=== PATIENT | female | born 1985 | race Two or more races ===

== ENCOUNTER 2016-09-29 00:09 | Emergency (ER) | payer MEDICAID ==
[2016-09-29] MEDS ORDERED: Acetaminophen TAB* 325 MG PO ONE (01:37)
--- NOTE | 2016-09-29 01:42 | ED ---
Upper Extremity Pain - HPI Summary HPI Summary: 30 F w/ PMH of asthma who is 39 weeks presents with right thumb pain. She jammed her finger into a wall. She states the area has swollen and her finger is throbbing. She denies any numbness or tingling. She denies any wrist pain or other symptoms. She is right handed. She has not taken anything for the pain. - History of Current Complaint Chief Complaint: EDExtremityUpper Stated Complaint: RIGHT THUMB PAIN Time Seen by Provider: 09/29/16 01:31 - Allergies/Home Medications Allergies/Adverse Reactions: Allergies Allergy/AdvReac Type Severity Reaction Status Date / Time Fish-derived Products Allergy Severe Difficulty Verified 02/19/16 09:01 Breathing PMH/Surg Hx/FS Hx/Imm Hx Endocrine/Hematology History: Denies: Hx Anticoagulant Therapy, Hx Diabetes, Hx Thyroid Disease Cardiovascular History: Denies: Hx Hypertension, Hx Pacemaker/ICD Respiratory History: Reports: Hx Asthma Denies: Hx Chronic Obstructive Pulmonary Disease (COPD) History: Denies: Hx Renal Disease Neurological History: Denies: Hx Dementia, Hx Seizures Psychiatric History: Denies: Hx Substance Abuse - Immunization History Date of Tetanus Vaccine: UNKNOWN Date of Influenza Vaccine: NONE Infectious Disease History: No Infectious Disease History: Denies: Hx Hepatitis, Hx Human Immunodeficiency Virus (HIV), Traveled Outside the [place] in Last 30 Days - Family History Known Family History: Negative: Cardiac Disease - Social History Alcohol Use: None Substance Use Type: Reports: None Smoking Status (MU): Never Smoked Tobacco Review of Systems Negative: Fever Negative: Chest Pain Negative: Shortness Of Breath Positive: Myalgia - right thumb pain All Other Systems Reviewed And Are Negative: Yes Physical Exam Triage Information Reviewed: Yes Vital Signs On Initial Exam: Initial Vitals Temp Pulse Resp BP Pulse Ox 98.4 F 102 18 104/65 100 09/29/16 00:13 09/29/16 00:13 09/29/16 00:13 09/29/16 00:09/29/16 00:13 Vital Signs Reviewed: Yes Appearance: Positive: Well-Appearing Skin: Positive: Warm, Dry Head/Face: Positive: Normal Head/Face Inspection ENT: Positive: Normal ENT inspection, Pharynx normal, TMs normal Respiratory/Lung Sounds: Positive: Clear to Auscultation, Breath Sounds Present Cardiovascular: Positive: Normal, RRR Musculoskeletal: Positive: Strength/ROM Intact - of index, ring, middle and pinky finger, Limited @ - thumb due to pain, Other - no snuff box tenderness or wrist tenderness, only tender metacarpel pharyngeal joint, capillary refill < 2secs, good pulses, sensation grossly intact Diagnostics - Vital Signs Vital Signs Temp Pulse Resp BP Pulse Ox 09/29/16 00:13 98.4 F 102 18 104/65 100 - Laboratory Lab Statement: Any lab studies that have been ordered have been reviewed, and results considered in the medical decision making process. - Radiology thumb Xray Interpretation: No Acute Changes Radiology Interpretation Completed By: ED Physician Course/Dx - Course Course Of Treatment: 30 F presents with right thumb pain s/p jamming finger in wall, she is 39 weeks , no exam neurovascular intact, limited ROM of thumb due to pain, xray showed no fracture read by me, will treat conservatively , patient agrees with plan - Diagnoses Differential Diagnosis/HQI/PQRI: Positive: Contusion, Fracture (Closed), Strain , Sprain Provider Diagnoses: Pain of right thumb Discharge - Discharge Plan Condition: Good Disposition: HOME Patient Education Materials: Finger Sprain (ED) Referrals: Non Staff,Doctor [Primary Care Provider] - Additional Instructions: Take Tylenol for pain every 6 hours as needed Ice, elevate Establish care with primary care physician to follow up Return to ED if develop any new or worsening symptoms
[2016-09-29 02:25] VITALS: BP 125/80
--- NOTE | 2016-09-29 07:24 | RAD ---
INDICATION: Pain at proximal phalanx after "jammed thumb" COMPARISON: None TECHNIQUE: 3 views of the right thumb were obtained. FINDINGS: The bones are normal alignment. Joint spaces appear maintained. No fracture is seen. IMPRESSION: No acute fracture or dislocation. If the patient's symptoms persist, follow-up imaging is recommended.
== END 2016-09-29 02:22 | disposition home or self-care (01) ==
LOC: ED 00:09
DX: M79.644 Pain in right finger(s) (principal); Z3A.39 39 weeks gestation of pregnancy
CPT/HCPCS: 99283; A9270-GY

== ENCOUNTER 2016-10-03 02:08 | Inpatient (IN) | payer MEDICAID ==
[2016-10-03 03:16] LABS: ROM Internal QC QC Line Present
[2016-10-03 04:37] LABS: Comments Flag Yes; Hematocrit 29 % (35-47); Hemoglobin 8.8 g/dl (12.0-16.0); Mean Corpuscular HGB Conc 31 g/dl (31-36); Mean Corpuscular Hemoglobin 21 pg (27-31); Mean Corpuscular Volume 68 fL (80-97); Mean Platelet Volume 8 um3 (7.4-10.4); Red Blood Count 4.29 10^6/ul (4.0-5.4); Red Cell Distribution Width 19 % (10.5-15); White Blood Count 9.5 10^3/ul (3.5-10.8)
[2016-10-03 04:38] LABS: Add Diff/Slide Review? Slide Review Added
[2016-10-03 05:40] LABS: Microcytosis 2+
[2016-10-03 05:41] LABS: Add Path Review? YES
[2016-10-03] MEDS: GuaiFENesin DM* 5 ML UDC PO PRN ×3 (07:35→20:02)
[2016-10-03] MEDS ORDERED: Acetaminophen TAB* 325 MG ONE (07:36)
[2016-10-03] MEDS ORDERED: Oxytocin in LR* 20 UNITS/1,000 ML BAG IVPB SCH ×2 (10:00→14:00)
[2016-10-03] MEDS ORDERED: fentaNYL* 50 MCG/ML 2 ML VIAL (100 MCG VIAL) ONE (10:56)
[2016-10-03] MEDS ORDERED: fentaNYL* 50 MCG/ML 2 ML VIAL (100 MCG VIAL) IV SLOW PU ONE ×2 (11:01→12:05)
[2016-10-03] MEDS ORDERED: Glycerin ADULT SUPP PR PRN (13:12)
[2016-10-03] MEDS ORDERED: Witch Hazel PAD* JAR TOPICAL PRN (13:12)
[2016-10-03] MEDS ORDERED: Dibucaine 1% 28.35 GM TUBE PR PRN (13:12)
[2016-10-03] MEDS: Docusate CAP* 100 MG PO SCH ×2 (15:51→23:35)
[2016-10-03] MEDS: Acetaminophen TAB* 325 MG PO PRN (15:51)
[2016-10-03] MEDS: Simethicone TAB* 80 MG TAB.CHEW PO SCH ×2 (17:49→21:17)
[2016-10-03] MEDS ORDERED: Lidocaine 1% MPF* 2 ML VIAL ONE (18:54)
[2016-10-03] MEDS: Ibuprofen TAB* 600 MG PO PRN (20:02)
[2016-10-03] MEDS: oxyCODONE/Acetamin 5/325 MG* TAB PO PRN (23:35)
[2016-10-04] MEDS: Ibuprofen TAB* 600 MG PO PRN ×4 (02:18→20:40)
[2016-10-04] MEDS: GuaiFENesin DM* 5 ML UDC PO PRN ×4 (02:24→20:32)
[2016-10-04] MEDS: oxyCODONE/Acetamin 5/325 MG* TAB PO PRN ×4 (03:36→20:41)
[2016-10-04] MEDS: Docusate CAP* 100 MG PO SCH ×3 (07:37→20:32)
[2016-10-04 08:39] LABS: Hematocrit 27 % (35-47); Hemoglobin 8.1 g/dl (12.0-16.0); Mean Corpuscular HGB Conc 30 g/dl (31-36); Mean Corpuscular Hemoglobin 20 pg (27-31); Mean Platelet Volume 8 um3 (7.4-10.4); Red Blood Count 3.99 10^6/ul (4.0-5.4); Red Cell Distribution Width 20 % (10.5-15); White Blood Count 11.8 10^3/ul (3.5-10.8)
[2016-10-04 08:54] LABS: Comments Flag Yes; Mean Corpuscular Volume 68 fL (80-97)
[2016-10-04] MEDS: Ferrous Gluconate TAB* 324 MG TAB PO SCH ×2 (17:12→20:32)
[2016-10-04 20:24] VITALS: BP 103/58
[2016-10-05] MEDS: Ibuprofen TAB* 600 MG PO PRN (04:58)
[2016-10-05] MEDS: oxyCODONE/Acetamin 5/325 MG* TAB PO PRN (04:58)
[2016-10-05] MEDS: GuaiFENesin DM* 5 ML UDC PO PRN (05:02)
[2016-10-05] MEDS: Docusate CAP* 100 MG PO SCH ×2 (08:36→13:44)
[2016-10-05] MEDS: Ferrous Gluconate TAB* 324 MG TAB PO SCH (08:51)
[2016-10-05] MEDS: Acetaminophen TAB* 325 MG PO PRN (08:52)
== END 2016-10-05 16:03 | disposition home or self-care (01) | DRG 560 ==
LOC: MCHOBOUT 02:08 → MCHOB 03:23
PROVIDERS: ADMIT Midwife; ATTEND Midwife
PROC: 10E0XZZ Delivery of Products of Conception, External Approach (ICD-10-PCS; principal; 2016-10-03)
PROC: 4A1HXCZ Monitoring of Products of Conception, Cardiac Rate, External Approach (ICD-10-PCS; 2016-10-03)
DX: O99.52 Diseases of the respiratory system complicating childbirth (principal); O98.82 Other maternal infectious and parasitic diseases complicating childbirth; Z3A.40 40 weeks gestation of pregnancy; J45.909 Unspecified asthma, uncomplicated; Z37.0 Single live birth; O90.81 Anemia of the puerperium; F53 Mental and behavioral disorders associated with the puerperium, not elsewhere classified; J06.9 Acute upper respiratory infection, unspecified
CPT/HCPCS: 36415; 84112; 85025; 85060; 86850; 86900; 86901; A9270-GY; J3010

== ENCOUNTER → 2017-06-24 12:22 | Emergency (ER) | payer SELFPAY ==
[2017-06-24 12:27] VITALS: BP 97/53
[2017-06-24 14:39] LABS: Urine Nitrite Negative (Negative)
[2017-06-24 14:40] LABS: Urine Bacteria Absent (Absent); Urine Bilirubin Negative (Negative); Urine Glucose Negative (Negative)
[2017-06-24 14:41] LABS: Manual Entry Verification CR; UR Preg Internal Control QC Line Present
--- NOTE | 2017-06-24 15:07 | RAD ---
Indication: Right ankle pain. 3 views of the right ankle demonstrates ankle mortise to be intact. There is no fracture. No other bone or joint abnormality is identified. INDICATION: No fracture of the right ankle is noted.
--- NOTE | 2017-06-24 15:36 | ED ---
Lower Extremity - HPI Summary HPI Summary: Patient is an otherwise healthy F presenting 2 days s/p right ankle injury. She notes to inversion of the ankle after tripping over an object at home. Thorough physical exam was performed, focusing on ankle special tests. No pain on palpation over lateral aspect and superior aspect of ankle over ATFL and deltoid ligaments. No pain on palpation over medial side. There is diffuse tenderness to the plantar side of the foot and bilateral posterior ankle pain. Nolasco test negative, but pain on palpation over achilles. Due to patient pain around injury, physical exam was limited. Limited ROM. Dorsiflexion, great toe extension and plantar flexion intact however limited. No pain on palpation over medial or lateral lower extremity. No pain with knee flexion. Pulses intact bilaterally. No temperature change or pallor noted bilaterally. Ecchymosis and swelling noted on lateral aspect. No lesion or disruption of skin is seen. Unable to bear weight. Strength decreased in the right foot. She denies any medication use. - History of Current Complaint Chief Complaint: EDExtremityLower Stated Complaint: RT ANKLE SWOLLEN/PAIN Time Seen by Provider: 06/24/17 12:37 Hx Obtained From: Patient Mechanism Of Injury: Twisted Onset of Pain: Immediate Onset/Duration: Minutes Severity Initially: Mild Severity Currently: Mild Pain Intensity: 6 Pain Scale Used: 0-10 Numeric Timing: Constant Location: Is Discrete @ - right posterior ankle Associated Signs And Symptoms: Positive: Negative Aggravating Factor(s): Standing, Ambulation Alleviating Factor(s): Rest - Risk Factors Gout Risk Factors: Negative DVT Risk Factors: Negative Septic Arthritis Risk Factor: Negative - Allergies/Home Medications Allergies/Adverse Reactions: Allergies Allergy/AdvReac Type Severity Reaction Status Date / Time Fish-derived Products Allergy Severe Difficulty Verified 02/19/16 09:01 Breathing PMH/Surg Hx/FS Hx/Imm Hx Previously Healthy: Yes Endocrine/Hematology History: Denies: Hx Anticoagulant Therapy, Hx Diabetes, Hx Thyroid Disease Cardiovascular History: Denies: Hx Hypertension, Hx Pacemaker/ICD Respiratory History: Reports: Hx Asthma Denies: Hx Chronic Obstructive Pulmonary Disease (COPD) History: Denies: Hx Renal Disease Neurological History: Denies: Hx Dementia, Hx Seizures Psychiatric History: Reports: Hx Anxiety, Hx Depression Denies: Hx Substance Abuse - Immunization History Date of Tetanus Vaccine: UNKNOWN Date of Influenza Vaccine: NONE Hx Pertussis Vaccination: No Immunizations Up to Date: Unable to Obtain/Confirm Infectious Disease History: No Infectious Disease History: Denies: Hx Hepatitis, Hx Human Immunodeficiency Virus (HIV), Traveled Outside the [place] in Last 30 Days - Family History Known Family History: Negative: Cardiac Disease - Social History Occupation: Employed Full-time Lives: With Family Alcohol Use: None Hx Substance Use: No Substance Use Type: Reports: None Hx Tobacco Use: No Smoking Status (MU): Never Smoked Tobacco Have You Smoked in the Last Year: No Review of Systems Constitutional: Negative Eyes: Negative Cardiovascular: Negative Respiratory: Negative Positive: no symptoms reported, see HPI Positive: Arthralgia - right ankle pain Skin: Negative Psychological: Normal All Other Systems Reviewed And Are Negative: Yes Physical Exam Triage Information Reviewed: Yes Vital Signs On Initial Exam: Initial Vitals Temp Pulse Resp BP Pulse Ox 98.8 F 80 18 97/53 99 06/24/17 12:23 06/24/17 12:23 06/24/17 12:23 06/24/17 12:23 06/24/17 12:23 Vital Signs Reviewed: Yes Appearance: Positive: Well-Appearing, Well-Nourished Skin: Positive: Warm, Skin Color Reflects Adequate Perfusion - [place] Coma Scale Coma Scale Total: 15 Diagnostics - Vital Signs Vital Signs Temp Pulse Resp BP Pulse Ox 06/24/17 12:23 98.8 F 80 18 97/53 99 - Laboratory Lab Results: Lab Results 06/24/17 06/24/17 Range/Units 13:41 14:20 Urine Color Yellow Urine Appearance Clear Urine pH 5 (5-9) Ur Specific Bliss 1.026 (1.010-1.030) Urine Protein Negative (Negative) Urine Ketones Negative (Negative) Urine Blood Negative (Negative) Urine Nitrate Negative (Negative) Urine Bilirubin Negative (Negative) Urine Urobilinogen Negative (Negative) Ur Leukocyte Esterase Negative (Negative) Urine WBC (Auto) Trace(0-5/hpf) (Absent) Urine RBC (Auto) Trace(0-2/hpf) (Absent) Ur Squamous Epith Cells Present H (Absent) Urine Bacteria Absent (Absent) Urine Glucose Negative (Negative) Urine Test Negative (Negative) Lab Statement: Any lab studies that have been ordered have been reviewed, and results considered in the medical decision making process. Lower Extremity Course/Dx - Course Course Of Treatment: Patient presents with right posterior ankle pain 2 days s/ p fall. No swelling or ecchymosis noted. No numbness, tingling, temperature or color changes to the area. Based on [place] Ankle Rules, patient sent to imaging. Xray negative for fracture or other acute findings. Medial and lateral distal lower extremity without pain and x-rays show no widening of the ankle joint regarding low suspicion for Maisonneuve fx. Ankle was elizabeth wrapped to patient comfort to allow for immobilization for this period of time. Crutches given. Patient given orthopedic follow up in 5-7 days. Encouraged Ibuprofen 600mg three times daily with meals for pain. Return precautions given. Educated patient regarding ankle injuries and healing time and the possibility of further evaluation and imaging as orthopedist sees fit. Gel ankle splint applied and crutches given. - Diagnoses Differential Diagnosis/HQI/PQRI: Positive: Contusion, Fracture (Closed), Fracture (Open), Sprain, Strain Provider Diagnoses: Ankle sprain Discharge - Discharge Plan Condition: Stable Disposition: HOME Patient Education Materials: Ankle Sprain (ED) Referrals: Non Staff,Doctor [Primary Care Provider] - Additional Instructions: Crutches for ambulation given. Ibuprofen 600mg three times daily with meals for pain. Follow up with orthopedic physician in 5-7 days. If numbness, tingling, decreased sensation, increased pain, temperature changes or pallor noted in toes, come back to ER immediately. Protect the area. For your comfort level, do not bear weight, pull or push until you can injury is somewhat healed. This may involve the need for immobilization or crutches for a period of time. Rest the involved area, but not too long. You may need to be off your injury for some time to allow for healing, however excessive immobilization of joints can lead to stiffness and delay healing time. Early mobilization is encouraged if it is pain-free. Ice. Not directly on the skin. Cover with a towel. Apply ice no more than 30 minutes at a time Compression: You may use and keep an elizabeth wrap bandage over the injury to decrease swelling. Again, this should be limited and be taken off periodically to encourage early range of motion and mobilization. Elevate: Try to elevate the injured area above the heart whenever possible.
== END | disposition home or self-care (01) ==
LOC: ED 12:22
DX: S93.401A Sprain of unspecified ligament of right ankle, initial encounter (principal); W22.8XXA Striking against or struck by other objects, initial encounter; Y93.9 Activity, unspecified; Y92.9 Unspecified place or not applicable
CPT/HCPCS: 81003; 81025; 99282

== ENCOUNTER 2018-03-14 16:27 | Emergency (ER) | payer MEDICAID ==
[2018-03-14 16:37] VITALS: BP 103/45
--- NOTE | 2018-03-14 16:42 | UC ---
Skin Complaint HPI - HPI Summary HPI Summary: 32 yo female presents with ?insect bite to right side of her neck sustained 2 days ago. Today noticed it seems to be having some blistering and is tender. Denies fever, chills, or drainage. - History of Current Complaint Chief Complaint: UCSkin Time Seen by Provider: 03/14/18 16:42 Stated Complaint: INSECT BITE Hx Obtained From: Patient Hx Last Menstrual Period: 01/11/18 Onset/Duration: Sudden Onset Pain Intensity: 0 - Allergy/Home Medications Allergies/Adverse Reactions: Allergies Allergy/AdvReac Type Severity Reaction Status Date / Time fish derived Allergy Difficulty Verified 03/14/18 16:38 Breathing Review of Systems Constitutional: Negative Skin: Other - Right neck insect bite Respiratory: Negative Cardiovascular: Negative Neurological: Negative Psychological: Negative All Other Systems Reviewed And Are Negative: Yes PMH/Surg Hx/FS Hx/Imm Hx - Additional Past Medical History Additional PMH: None Other History Of: Negative For: Anticoagulant Therapy - Surgical History Surgical History: Yes Surgery Procedure, Year, and Place: breast reduction, ovarian cyst - Family History Known Family History: Negative: Cardiac Disease - Social History Occupation: Employed Full-time Lives: With Family Alcohol Use: None Substance Use Type: None Smoking Status (MU): Never Smoked Tobacco Have You Smoked in the Last Year: No - Immunization History Most Recent Influenza Vaccination: unknown Most Recent Tetanus Shot: unknown Most Recent Pneumonia Vaccination: never Physical Exam - Summary Physical Exam Summary: GENERAL: NAD. WDWN. No pain distress. SKIN: Right neck: 1.0cm diameter of mild erythema with 4-5 1mm pustules. No streaking, bleeding, or drainage. NECK: Supple. Nontender. No lymphadenopathy. CHEST: No accessory muscle use. Breathing comfortably and in no distress. CV: RRR. Without m/r/g. NEURO: Alert. CN II-XII grossly intact. PSYCH: Age appropriate behavior. Triage Information Reviewed: Yes Vital Signs: Initial Vital Signs Temp 99.0 F 03/14/18 16:33 Pulse 70 03/14/18 16:33 Resp 16 03/14/18 16:33 BP 103/45 03/14/18 16:33 Pulse Ox 100 03/14/18 16:33 Course/Dx - Course Course Of Treatment: Cellulitis from insect - Diagnoses Provider Diagnoses: Cellulitis right neck due to insect Discharge - Sign-Out/Discharge Documenting (check all that apply): Discharge/Admit/Transfer - Discharge Plan Condition: Stable Disposition: HOME Prescriptions: Cephalexin CAP* [Keflex CAP*] 500 mg PO BID #14 cap Patient Education Materials: Insect Bite or Sting (ED) Referrals: No Primary Care Phys,NOPCP [Primary Care Provider] - Additional Instructions: If you develop a fever, shortness of breath, chest pain, new or worsening symptoms - please call your PCP or go to the ED. - Billing Disposition and Condition Condition: STABLE Disposition: Home
--- NOTE | 2018-03-15 16:42 | PN ---
Progress Note - Progress Note Date of Service: 03/15/18 Note: Patient's wound culture negative for MRSA and staph aureus. Preliminary culture grew 1+ gram-positive cocci. Patient placed on Keflex. Will wait for final culture for sensitivity.
--- NOTE | 2018-03-16 12:06 | UC ---
- Progress Note Progress Note: MRSA neg STaph neg on Keflex await cx ljj 03/16/2018 Discharge - Sign-Out/Discharge Documenting (check all that apply): Post-Discharge Follow Up - Discharge Plan Condition: Stable Disposition: HOME Prescriptions: Cephalexin CAP* [Keflex CAP*] 500 mg PO BID #14 cap Patient Education Materials: Insect Bite or Sting (ED) Referrals: No Primary Care Phys,NOPCP [Primary Care Provider] - Additional Instructions: If you develop a fever, shortness of breath, chest pain, new or worsening symptoms - please call your PCP or go to the ED. - Billing Disposition and Condition Condition: STABLE Disposition: Home
--- NOTE | 2018-03-20 09:27 | UC ---
- Progress Note Progress Note: Would culture grew out MOLD isolate has been sent to [facility] for further Identification (and possible +1 Gm+ Cocci) call patient and assure wound is resolving, if not resolved please have her seek follow up with urgent care or pcp 1-2 days--Yen Wilson [employer] Discharge - Sign-Out/Discharge Documenting (check all that apply): Post-Discharge Follow Up - Discharge Plan Condition: Stable Disposition: HOME Prescriptions: Cephalexin CAP* [Keflex CAP*] 500 mg PO BID #14 cap Patient Education Materials: Insect Bite or Sting (ED) Referrals: No Primary Care Phys,NOPCP [Primary Care Provider] - Additional Instructions: If you develop a fever, shortness of breath, chest pain, new or worsening symptoms - please call your PCP or go to the ED. - Billing Disposition and Condition Condition: STABLE Disposition: Home
--- NOTE | 2018-03-26 17:33 | UC ---
- Progress Note Progress Note: patient grew Penicillum sp from wound, please call back patient for f/u of symptoms, if not improving/resolved to return to ER Discharge - Sign-Out/Discharge Documenting (check all that apply): Post-Discharge Follow Up - Discharge Plan Condition: Stable Disposition: HOME Prescriptions: Cephalexin CAP* [Keflex CAP*] 500 mg PO BID #14 cap Patient Education Materials: Insect Bite or Sting (ED) Referrals: No Primary Care Phys,NOPCP [Primary Care Provider] - Additional Instructions: If you develop a fever, shortness of breath, chest pain, new or worsening symptoms - please call your PCP or go to the ED. - Billing Disposition and Condition Condition: STABLE Disposition: Home
== END 2018-03-14 17:09 | disposition home or self-care (01) ==
LOC: UCEAST 16:27
DX: S10.96XA Insect bite of unspecified part of neck, initial encounter (principal); L03.221 Cellulitis of neck; W57.XXXA Bitten or stung by nonvenomous insect and other nonvenomous arthropods, initial encounter; Y93.9 Activity, unspecified; Y92.9 Unspecified place or not applicable; Z91.013 Allergy to seafood
CPT/HCPCS: 87070; 87107; 87205; 87640; 87641; 99212; G0463

== ENCOUNTER 2019-09-10 19:15 | Emergency (ER) | payer OTHER ==
[2019-09-10] MEDS ORDERED: Lidocaine 1% MPF ** 5 ML VIAL INJ ONE (20:36)
[2019-09-10] MEDS ORDERED: Ketorolac TAB * 10 MG TAB PO ONE (20:36)
[2019-09-10] MEDS ORDERED: Penicillin VK TAB* 250 MG PO ONE (20:38)
--- NOTE | 2019-09-10 20:40 | ED ---
Throat Pain/Nasal Congestion - HPI Summary HPI Summary: Patient complains of upper left toothache radiating to left worship and left ear 1-1/2 weeks. Patient states she has appointment with dentist pending but does not know the date. Took Tylenol at 6:45 PM with no relief. Denies fever, purulent discharge, sore throat, trauma. - History of Current Complaint Chief Complaint: EDDentalPain Time Seen by Provider: 09/10/19 20:22 Hx Obtained From: Patient Onset/Duration: Gradual Onset, Lasting Weeks Severity: Moderate Associated Signs And Symptoms: Positive: Negative Cough: None - Allergies/Home Medications Allergies/Adverse Reactions: Allergies Allergy/AdvReac Type Severity Reaction Status Date / Time fish derived Allergy Difficulty Verified 09/10/19 19:38 Breathing PMH/Surg Hx/FS Hx/Imm Hx Endocrine/Hematology History: Denies: Hx Anticoagulant Therapy, Hx Diabetes, Hx Thyroid Disease Cardiovascular History: Denies: Hx Hypertension, Hx Pacemaker/ICD Respiratory History: Reports: Hx Asthma Denies: Hx Chronic Obstructive Pulmonary Disease (COPD) History: Denies: Hx Renal Disease Sensory History: Denies: Hx Eye Prosthesis Opthamlomology History: Denies: Hx Legally Blind EENT History: Denies: Hx Deafness Neurological History: Denies: Hx Dementia, Hx Seizures Psychiatric History: Reports: Hx Anxiety, Hx Depression Denies: Hx Substance Abuse - Surgical History Surgery Procedure, Year, and Place: breast reduction, ovarian cyst - Immunization History Date of Tetanus Vaccine: UNKNOWN Date of Influenza Vaccine: NONE Immunizations Up to Date: Yes Infectious Disease History: No Infectious Disease History: Denies: Hx Hepatitis, Hx Human Immunodeficiency Virus (HIV), Traveled Outside the [place] in Last 30 Days - Family History Known Family History: Negative: Cardiac Disease - Social History Alcohol Use: Occasionally Hx Substance Use: No Substance Use Type: Reports: None Hx Tobacco Use: No Smoking Status (MU): Never Smoked Tobacco Have You Smoked in the Last Year: No Review of Systems Constitutional: Negative Eyes: Negative Positive: Dental Pain Cardiovascular: Negative Respiratory: Negative Gastrointestinal: Negative Genitourinary: Negative Musculoskeletal: Negative Skin: Negative Neurological: Negative Psychological: Normal All Other Systems Reviewed And Are Negative: Yes Physical Exam Triage Information Reviewed: Yes Vital Signs On Initial Exam: Initial Vitals Temp Pulse Resp BP Pulse Ox 98.9 F 76 15 97/75 100 09/10/19 19:37 09/10/19 19:37 09/10/19 19:37 09/10/19 19:37 09/10/19 19:37 Vital Signs Reviewed: Yes Appearance: Positive: Well-Appearing Skin: Positive: Warm Head/Face: Positive: Normal Head/Face Inspection Eyes: Positive: Normal ENT: Positive: Normal ENT inspection Dental: Positive: Gross Decay/Caries @. Negative: Dental Fracture @, Abscess @ , Cellulitis @, Bleeding Neck: Positive: Supple Respiratory/Lung Sounds: Positive: Clear to Auscultation Cardiovascular: Positive: Normal Abdomen Description: Positive: Nontender Musculoskeletal: Positive: Normal Neurological: Positive: Normal Psychiatric: Positive: Normal AVPU Assessment: Alert - Delano Coma Scale Best Eye Response: 4 - Spontaneous Best Motor Response: 6 - Obeys Commands Best Verbal Response: 5 - Oriented Coma Scale Total: 15 Procedures - Sedation Patient Received Moderate/Deep Sedation with Procedure: No Diagnostics - Vital Signs Vital Signs Temp Pulse Resp BP Pulse Ox 09/10/19 19:37 98.9 F 76 15 97/75 100 - Laboratory Lab Statement: Any lab studies that have been ordered have been reviewed, and results considered in the medical decision making process. EENT Course/Dx - Course Course Of Treatment: Patient complains of upper left toothache radiating to left worship and left ear 1-1/2 weeks. Patient states she has appointment with dentist pending but does not know the date. Took Tylenol at 6:45 PM with no relief. Denies fever, purulent discharge, sore throat, trauma. Vital signs within normal limits. Dental block administered. Rx oxicodone. Rx for Pen- Vee K. - Diagnoses Provider Diagnoses: Pain, dental, Dental infection Discharge ED - Sign-Out/Discharge Documenting (check all that apply): Patient Departure - Discharge Plan Condition: Stable Disposition: HOME Prescriptions: Oxycodone HCl 5 mg PO Q6H 1 Days #4 tablet MDD 4 tabs Penicillin VK 500 MG TAB(NF) [Penicillin VK 500 mg Tab] 500 mg PO QID 7 Days # 28 tab Patient Education Materials: Toothache (ED) Referrals: No Primary Care Phys,NOPCP [Primary Care Provider] - Additional Instructions: Alternate ibuprofen 600 mg with Tylenol 650 mg every 3 hours for tooth pain as needed. Take antibiotics as directed. Follow up with your dentist as soon as possible. Return to the ED for any new or worsening symptoms - Billing Disposition and Condition Condition: STABLE Disposition: Home
[2019-09-10 21:10] VITALS: BP 112/60
== END 2019-09-10 21:10 | disposition home or self-care (01) ==
LOC: ED 19:15
DX: K08.89 Other specified disorders of teeth and supporting structures (principal); K04.7 Periapical abscess without sinus; H92.02 Otalgia, left ear; Z91.013 Allergy to seafood
CPT/HCPCS: 99282; A9270-GY

== ENCOUNTER 2019-12-08 20:54 | Emergency (ER) | payer OTHER ==
[2019-12-08] MEDS ORDERED: Ibuprofen TAB* 400 MG PO ONE (22:55)
[2019-12-08] MEDS ORDERED: Albuterol/Ipratropium NEB.SOL* Albuterol 2.5 MG/Ipratropium 0.5 MG 3 ML INH ONE (22:56)
--- NOTE | 2019-12-08 22:58 | ED ---
Influenza-Like Illness - HPI Summary HPI Summary: This pt is a 34 Y/O F presenting to [facility] with a CC of influenza-like symptoms that have been present since 12/04/2019. She states that she has had a fever, chills, headaches, chest wall pain, and SOB since the onset. She states that she has been in [place] and [place] around November 11. She states that her son has had a cold off and on for the past couple of months. Her fever is currently 101.1 F. She states that she is currently menstruating. She states that she was diagnosed with influenza at [facility] and has not gotten any better. She was told to come to [facility] for further work-ups to r/o bronchitis. She has a PMHx of asthma and anemia. She states that her asthma medications have not alleviated her pulmonary issues. She has a FHx of CA and asthma. She has no aggravating factors. - History of Current Complaint Chief Complaint: EDFever Time Seen by Provider: 12/08/19 22:46 Hx Obtained From: Patient Onset/Duration: Sudden Onset, Lasting Days - 4, Still Present Severity: Moderate Associated Signs & Symptoms: Fever - 101.1 F, Cough, Headache - Allergy/Home Medications Allergies/Adverse Reactions: Allergies Allergy/AdvReac Type Severity Reaction Status Date / Time fish derived Allergy Difficulty Verified 09/10/19 19:38 Breathing Home Medications: Home Medications Ibuprofen TAB* [Motrin TAB* 600 MG] 600 mg PO Q6H PRN #0 tab 10/05/16 [Rx Confirmed 03/14/18] Cephalexin CAP* [Keflex 500 CAP*] 500 mg PO BID #14 cap 03/14/18 [Rx] Oxycodone HCl 5 mg PO Q6H 1 Days #4 tablet MDD 4 tabs 09/10/19 [Rx] Penicillin VK 500 MG TAB(NF) [Penicillin VK 500 mg Tab] 500 mg PO QID 7 Days # 28 tab 09/10/19 [Rx] predniSONE [Prednisone 20 MG TAB] 40 mg PO DAILY #10 tablet 12/09/19 [Rx] PMH/Surg Hx/FS Hx/Imm Hx Previously Healthy: Yes Endocrine/Hematology History: Reports: Hx Anemia Denies: Hx Anticoagulant Therapy, Hx Diabetes, Hx Thyroid Disease Cardiovascular History: Denies: Hx Hypertension, Hx Pacemaker/ICD Respiratory History: Reports: Hx Asthma Denies: Hx Chronic Obstructive Pulmonary Disease (COPD) History: Denies: Hx Renal Disease Sensory History: Denies: Hx Eye Prosthesis, Hx Legally Blind, Hx Deafness Opthamlomology History: Denies: Hx Eye Prosthesis, Hx Legally Blind Neurological History: Denies: Hx Dementia, Hx Seizures Psychiatric History: Reports: Hx Anxiety, Hx Depression Denies: Hx Substance Abuse - Cancer History Hx Chemotherapy: No Hx Radiation Therapy: No - Surgical History Surgical History: Yes Surgery Procedure, Year, and Place: breast reduction, ovarian cyst - Immunization History Date of Tetanus Vaccine: UNKNOWN Date of Influenza Vaccine: NONE Immunizations Up to Date: No - influenza vaccine not taken Infectious Disease History: No Infectious Disease History: Denies: Hx Hepatitis, Hx Human Immunodeficiency Virus (HIV), Traveled Outside the [place] in Last 30 Days - [place] - Family History Known Family History: Negative: Cardiac Disease - Social History Occupation: Employed Full-time Lives: With Family Alcohol Use: Occasionally Hx Substance Use: No Substance Use Type: Reports: None Hx Tobacco Use: No Smoking Status (MU): Never Smoked Tobacco Have You Smoked in the Last Year: No Review of Systems Positive: Fever - 101.1 F, Chills Positive: Chest Pain - chest wall pain Positive: Shortness Of Breath Positive: Headache All Other Systems Reviewed And Are Negative: Yes Physical Exam - Summary Physical Exam Summary: General: Well-developed female. No acute distress. Mildly-ill appearing HEENT: Normocephalic, Atraumatic. Eyes: Conjuctiva normal, PERRL. Ears: TMs within normal limits. Nares: (-) discharge, (-) erythema. Oropharynx: Clear, mucous membranes moist, (-) exudates. Neck: Soft, FROM, (-) lymphadenopathy, (-) thyromegaly, (-) JVD. Cardiovascular: Normal sinus rhythm, (-) murmur. Lungs: decreased breath sounds bilaterally. Diffuse wheezes throughout, (-) rales, (-) rhonchi. Abdomen: Soft, non-tender, non-distended, (-) organomegaly, normal bowel sounds. Back: (-) CVA tenderness Extremities: No edema. Skin: Warm, dry, (-) rash. Neuro: Alert and oriented x3, no focal deficits. Psychiatric: Mood normal, affect normal. Triage Information Reviewed: Yes Vital Signs On Initial Exam: Initial Vitals Temp Pulse Resp BP Pulse Ox 101.1 F 106 20 114/73 99 12/08/19 21:08 12/08/19 21:08 12/08/19 21:08 12/08/19 21:08 12/08/19 21:08 Vital Signs Reviewed: Yes Procedures - Sedation Patient Received Moderate/Deep Sedation with Procedure: No Diagnostics - Vital Signs Vital Signs Temp Pulse Resp BP Pulse Ox 12/08/19 21:08 101.1 F 106 20 114/73 99 - Laboratory Lab Statement: Any lab studies that have been ordered have been reviewed, and results considered in the medical decision making process. - Radiology CXR Summary of Radiographic Findings: No infiltrate. No pleural effusion. Pending offical review. Flu Symptom Course/Dx - Course Course Of Treatment: 34-year-old female presents from home with difficulty breathing. Patient states she is been sick since Tuesday or Tuesday. Was seen at urgent care on diagnosed with flu. They did order her Tamiflu but she states she was unable to pick it up. She continues to feel achy. Taking medication at home. She does have a history of asthma. Has used her nebulizer couple hours ago but continues having difficulty breathing. Patient is mildly ill-appearing upon arrival. Febrile. Decreased lung sounds bilaterally with mild tight wheezing throughout. Chest x-ray is negative. Patient given ibuprofen, DuoNeb and prednisone. Moderate improvement with the DuoNeb. Patient is discharged home on a 5 day prednisone burst. Continue albuterol at home as directed. Off work until Tuesday. Follow-up with PCP. Follow up sooner for any worsening symptoms. - Diagnoses Provider Diagnoses: Influenza Discharge ED - Sign-Out/Discharge Documenting (check all that apply): Patient Departure - discharge - Discharge Plan Condition: Good Disposition: HOME Prescriptions: predniSONE [Prednisone 20 MG TAB] 40 mg PO DAILY #10 tablet Patient Education Materials: Influenza (ED) Forms: *Work Release Referrals: [facility] [Outside] - 2 Days Additional Instructions: PLEASE FOLLOW UP WITH [facility] IN 1-3 DAYS TO HAVE A PRIMARY CARE PHYSICIAN ESTABLISHED. RETURN TO THE EMERGENCY DEPARTMENT FOR ANY NEW OR WORSENING SYMPTOMS. Please take the medications prescribed to you as directed and for the recommended length. - Billing Disposition and Condition Condition: GOOD Disposition: Home - Attestation Statements Document Initiated by Juan: Yes Documenting Scribe: Anatoliy Smart Provider For Whom Scribe is Documenting (Include Credential): Muriel Kasper MD Scribe Attestation: I, Anatoliy Smart, scribed for Muriel Kasper MD on 12/09/19 at 0150. Scribe Documentation Reviewed: Yes Provider Attestation: The documentation as recorded by the [email or web address] accurately reflects the service I personally performed and the decisions made by me, Muriel Kasper MD Status of Scribe Document: Viewed
[2019-12-09 02:51] VITALS: BP 99/56
== END 2019-12-09 01:00 | disposition home or self-care (01) ==
LOC: ED 20:54
DX: J11.1 Influenza due to unidentified influenza virus with other respiratory manifestations (principal); R50.9 Fever, unspecified; Z91.013 Allergy to seafood
CPT/HCPCS: 71045; 99282; A9270-GY; J7512